=== PATIENT | male | born 1960 | race Caucasian/White ===

== ENCOUNTER 2018-12-13 02:39 | Emergency (ER) | payer OTHER ==
[~2018-12-13] VITALS: Ht 177.8 cm; Wt 110.0 kg
[2018-12-13 02:40] VITALS: BP 122/77
--- NOTE | 2018-12-13 03:00 | NUR ---
first contact with pt. pt complaining of right ankle pain and swelling. pt denies recent injury. pt has had this happen as a teenager. pt denies any other symptoms. pt's aox4. resps even and unlabored.
[2018-12-13] MEDS ORDERED: KETOROLAC 30 MG/1 ML ONE (03:14)
[2018-12-13] MEDS ORDERED: OXYcodone/APAP 5/325MG TABLET ONE (03:14)
--- NOTE | 2018-12-13 03:21 | NUR ---
PT MEDICATED PER EMAR FOR PAIN. PT TOLERATED WELL. PT'S AOX4. RESPS EVEN AND UNLABORED.
[2018-12-13] MEDS ORDERED: OXYcodone/APAP 5/325MG TABLET PO ONE (03:30)
[2018-12-13] MEDS ORDERED: KETOROLAC 60 MG/2 ML IM ONE (03:30)
--- NOTE | 2018-12-13 04:06 | NUR ---
PT GIVEN DC INSTRUCTIONS AND SCRIPTS. PT EDUCATED REGARDING DC MEDICATIONS. PT AMB WITH CRUTCHES TO DC. PT'S AOX4. RESPS EVEN AND UNLABORED. NO ACUTE DISTRESS AT DC.
== END 2018-12-13 04:07 | disposition home or self-care (01) ==
LOC: ED 04:00
DX: S93.491A Sprain of other ligament of right ankle, initial encounter (principal); I10 Essential (primary) hypertension; X58.XXXA Exposure to other specified factors, initial encounter; Y93.89 Activity, other specified; Y92.89 Other specified places as the place of occurrence of the external cause; Y99.8 Other external cause status
CPT/HCPCS: 73610; 96372; 99283; J1885